=== PATIENT | male | born 1960 | race Caucasian/White ===

== ENCOUNTER 2018-09-28 06:39 | Emergency (ER) | payer BC ==
[~2018-09-28 06:39] MED LIST changes: +LOSA25TA52 PO; -LOSA25TA57 PO; +LOSA50TA74 PO; -LOSA50TA80 PO
[2018-09-28] MEDS ORDERED: LOSA25TA52 PO (07:00)
[2018-09-28] MEDS ORDERED: MORPHINE 2 MG/ML SYR IVP ONE (07:05)
[2018-09-28] MEDS ORDERED: NS(*) 0.9% 500 ML BAG 500 ML IV ONE (07:05)
[2018-09-28] MEDS ORDERED: MORPHINE 4 MG/ML SDV IVP ONE ×2 (07:20→08:55)
[2018-09-28] MEDS ORDERED: ONDANSETRON 4 MG/2 ML VIAL IVP ONE ×2 (07:20→08:55)
[2018-09-28 07:22] LABS: PLATELET COUNT, AUTOMATED 243 K/uL (150-450)
[2018-09-28] MEDS ORDERED: IOPAMIDOL 76% 75 ML INFUS BTL 75 ML ONE (07:30)
--- NOTE | 2018-09-28 08:23 | ER Report ---
History and Physical Time Seen By MD: 07:00 Hx. of Stated Complaint: PATIENT IS EXPERIENCING SHARP ABD. PAIN THAT STARTED YESTERDAY; PATIENT STATES THAT HE HAD DIARREHA LAST WED., ., AND THU. OVER THE WEEKEND THE PATIENT HAD SOME CONSTIPATION; PATIENTS PAIN IS 8/10 HPI/ROS CHIEF COMPLAINT: abdominal pain throughout HISTORY OF PRESENT ILLNESS: Patient developed abdominal pain yesterday. It was initially lower abdomen but is now throughout abdomen. Pain is constant. Nonradiating. Severe. Associated with mild nausea without vomiting. Noted loose stools 3, 2 days ago. Minimal distention. Passing gas. No prior abd surgeries. Has hx cad and s/p stent placement. + anorexia this am REVIEW OF SYSTEMS: Constitutional: No fever, no chills. Eyes: No discharge. ENT: No sore throat. Cardiovascular: No chest pain, no palpitations. Respiratory: No cough, no shortness of breath. Gastrointestinal: above Genitourinary: no dysuria Musculoskeletal: No back pain. Skin: No rashes. Neurological: No headache. Remainder of the 14 system rev: Yes Allergies: Coded Allergies: No Known Drug Allergies (Unverified , 09/28/18) Home Meds Active Scripts Bupropion Hcl (WELLBUTRIN XL) 150 Mg Tab.er.24h, 300 MG PO DAILY, #180 TAB 1 Refill Prov:CECILIA DELAROSA MD 08/06/18 Metoprolol Tartrate (METOPROLOL TARTRATE) 25 Mg Tablet, 0.5 TAB PO QHS, #90 TAB 3 Refills Prov:CECILIA DELAROSA MD 05/14/18 Rosuvastatin Calcium (CRESTOR) 20 Mg Tablet, 20 MG PO QDAY, #90 TAB 3 Refills Prov:CECILIA DELAROSA MD 04/16/18 Clopidogrel Bisulfate (PLAVIX) 75 Mg Tablet, 1 TAB PO QDAY, #90 TAB 3 Refills Prov:CECILIA DELAROSA MD 04/15/18 Tadalafil (CIALIS) 10 Mg Tablet, 1 TAB PO DAILY PRN for sexual activity, #6 TAB 3 Refills Do Not take with nitroglycerin Prov:CECILIA DELAROSA MD 04/15/18 Ranitidine Hcl (ZANTAC) 150 Mg Tablet, 1-2 TAB PO DAILY, #90 TAB 3 Refills Prov:CECILIA DELAROSA MD 04/15/18 Doxycycline Hyclate (DOXYCYCLINE HYCLATE) 50 Mg Capsule, 50 MG PO DAILY, #90 CAPSULE 3 Refills Prov:CECILIA DELAROSA MD 04/15/18 Reported Medications Losartan Potassium (LOSARTAN POTASSIUM) 25 Mg Tablet, 25 MG PO QDAY 09/28/18 Nitroglycerin (NITROGLYCERIN) 0.4 Mg Tab.subl, 0.4 MG SL Q5MIN 05/05/17 Aspirin (ASPIR 81) 81 Mg Tablet.dr, 81 MG PO QDAY, TAB 05/05/17 Discontinued Reported Medications Losartan Potassium (LOSARTAN POTASSIUM) 50 Mg Tablet, 50 MG PO QDAY 05/14/18 Reviewed Nurses Notes: Yes Old Medical Records Reviewed: Yes Smoking Status: Never Smoker Constitutional Vital Sign - Last 24 Hours 09/28/18 09/28/18 09/28/18 09/28/18 06:39 06:43 06:45 06:54 Temp 98.1 Pulse ??? 84 76 Resp 18 18 B/P (MAP) 166/101 166/101 (122) Pulse Ox 94 93 O2 Delivery Room Air 09/28/18 09/28/18 09/28/18 09/28/18 07:00 07:09 07:20 07:24 Pulse 81 74 Resp 29 32 B/P (MAP) 147/103 (118) 130/70 (90) Pulse Ox 97 94 09/28/18 09/28/18 09/28/18 09/28/18 07:40 07:54 08:09 08:20 Pulse ??? 76 Resp 9 B/P (MAP) 125/76 (92) 127/74 (91) Pulse Ox 93 09/28/18 09/28/18 09/28/18 08:24 08:35 10:35 Temp 98.5 Pulse 69 Resp 17 B/P (MAP) 122/75 (91) Pulse Ox 96 Physical Exam General Appearance: The patient is alert, has no immediate need for airway protection and no signs of toxicity. Eyes: Pupils equal and round no pallor or injection. ENT, Mouth: Mucous membranes are moist. Respiratory: There are no retractions, lungs are clear to auscultation. Cardiovascular: Regular rate and rhythm. Gastrointestinal: abdomen is ttp throughout; josué rlq; + rebound/guarding. Mild distension. Nl bs. Neurological: alert, oriented, pérez Skin: Warm and dry, no rashes. Musculoskeletal: Neck is supple non tender. Extremities are nontender, nonswollen and have full range of motion. DIFFERENTIAL DIAGNOSIS: After history and physical exam differential diagnosis was considered for abdominal pain including but not limited to appendicitis, cholecystitis, gastritis and urinary tract infection. Medical Decision Making Data Points Result Diagram: 09/28/18 0655 09/28/18 0655 Laboratory Hematology Test 09/28/18 06:55 09/28/18 08:50 09/28/18 10:27 Red Blood Count 5.47 M/uL (4.00-5.60) Mean Corpuscular Volume 87.6 fL (80.0-96.0) Mean Corpuscular Hemoglobin 30.3 pg (26.0-33.0) Mean Corpuscular Hemoglobin Concent 34.7 g/dL (32.0-36.0) Red Cell Distribution Width 14.0 % (11.5-14.5) Mean Platelet Volume 7.5 fL (7.2-11.1) Neutrophils (%) (Auto) 76.6 % (39.4-72.5) Lymphocytes (%) (Auto) 15.1 % (17.6-49.6) Monocytes (%) (Auto) 6.5 % (4.1-12.4) Eosinophils (%) (Auto) 1.4 % (0.4-6.7) Basophils (%) (Auto) 0.4 % (0.3-1.4) Nucleated RBC Relative Count (auto) 0.0 /100WBC Neutrophils # (Auto) 9.3 K/uL (2.0-7.4) Lymphocytes # (Auto) 1.8 K/uL (1.3-3.6) Monocytes # (Auto) 0.8 K/uL (0.3-1.0) Eosinophils # (Auto) 0.2 K/uL (0.0-0.5) Basophils # (Auto) 0.1 K/uL (0.0-0.1) Nucleated RBC Absolute Count (auto) 0.01 K/uL Peripheral Blood Smear No Y/N Prothrombin Time 12.9 seconds (12.0-14.4) Prothromb Time International Ratio 0.97 Activated Partial Thromboplast Time 36 seconds (23-35) Sodium Level 140 mmol/L (137-145) Potassium Level 4.0 mmol/L (3.5-5.0) Chloride Level 107 mmol/L (98-107) Carbon Dioxide Level 22 mmol/L (22-30) Blood Urea Nitrogen 15 mg/dl (9-21) Creatinine 1.00 mg/dl (0.66-1.25) Glomerular Filtration Rate Calc > 60.0 Random Glucose 117 mg/dl (75-110) Lactate 1.3 mmol/L (0.7-2.1) Calcium Level 8.8 mg/dl (8.4-10.2) Total Bilirubin 0.6 mg/dl (0.2-1.3) Aspartate Amino Transf (AST/SGOT) 34 U/L (0-35) Alanine Aminotransferase (ALT/SGPT) 47 U/L (0-56) Alkaline Phosphatase 72 U/L (0-126) Total Protein 6.7 g/dl (6.3-8.2) Albumin 3.9 g/dl (3.5-5.0) Lipase 76 U/L (23-300) Troponin I < 0.012 ng/ml Urine Color Yellow Urine Clarity Clear Urine pH 8.0 pH (4.8-9.5) Urine Specific [place] 1.044 Urine Protein Negative mg/dL (NEGATIVE) Urine Glucose (UA) Negative mg/dL (NEGATIVE) Urine Ketones Negative mg/dL (NEGATIVE) Urine Blood Negative (NEGATIVE) Urine Nitrite Negative (NEGATIVE) Urine Bilirubin Negative (NEGATIVE) Urine Urobilinogen Negative mg/dL (0.2-1.9) Urine Leukocyte Esterase Negative (NEGATIVE) Urine RBC <1 /HPF (0-2/HPF) Urine WBC <1 /HPF (0-5/HPF) Urine Squamous Epithelial Cells None /LPF (</=FEW) Urine Bacteria Negative /HPF (NONE-FEW) Urine Mucus None /HPF (NONE-FEW) Chemistry Test 09/28/18 06:55 09/28/18 08:50 09/28/18 10:27 White Blood Count 12.2 k/uL (4.5-11.0) Red Blood Count 5.47 M/uL (4.00-5.60) Hemoglobin 16.6 g/dL (14.0-18.0) Hematocrit 47.9 % (42.0-52.0) Mean Corpuscular Volume 87.6 fL (80.0-96.0) Mean Corpuscular Hemoglobin 30.3 pg (26.0-33.0) Mean Corpuscular Hemoglobin Concent 34.7 g/dL (32.0-36.0) Red Cell Distribution Width 14.0 % (11.5-14.5) Platelet Count 243 K/uL (150-450) Mean Platelet Volume 7.5 fL (7.2-11.1) Neutrophils (%) (Auto) 76.6 % (39.4-72.5) Lymphocytes (%) (Auto) 15.1 % (17.6-49.6) Monocytes (%) (Auto) 6.5 % (4.1-12.4) Eosinophils (%) (Auto) 1.4 % (0.4-6.7) Basophils (%) (Auto) 0.4 % (0.3-1.4) Nucleated RBC Relative Count (auto) 0.0 /100WBC Neutrophils # (Auto) 9.3 K/uL (2.0-7.4) Lymphocytes # (Auto) 1.8 K/uL (1.3-3.6) Monocytes # (Auto) 0.8 K/uL (0.3-1.0) Eosinophils # (Auto) 0.2 K/uL (0.0-0.5) Basophils # (Auto) 0.1 K/uL (0.0-0.1) Nucleated RBC Absolute Count (auto) 0.01 K/uL Peripheral Blood Smear No Y/N Prothrombin Time 12.9 seconds (12.0-14.4) Prothromb Time International Ratio 0.97 Activated Partial Thromboplast Time 36 seconds (23-35) Glomerular Filtration Rate Calc > 60.0 Lactate 1.3 mmol/L (0.7-2.1) Calcium Level 8.8 mg/dl (8.4-10.2) Total Bilirubin 0.6 mg/dl (0.2-1.3) Aspartate Amino Transf (AST/SGOT) 34 U/L (0-35) Alanine Aminotransferase (ALT/SGPT) 47 U/L (0-56) Alkaline Phosphatase 72 U/L (0-126) Total Protein 6.7 g/dl (6.3-8.2) Albumin 3.9 g/dl (3.5-5.0) Lipase 76 U/L (23-300) Troponin I < 0.012 ng/ml Urine Color Yellow Urine Clarity Clear Urine pH 8.0 pH (4.8-9.5) Urine Specific [place] 1.044 Urine Protein Negative mg/dL (NEGATIVE) Urine Glucose (UA) Negative mg/dL (NEGATIVE) Urine Ketones Negative mg/dL (NEGATIVE) Urine Blood Negative (NEGATIVE) Urine Nitrite Negative (NEGATIVE) Urine Bilirubin Negative (NEGATIVE) Urine Urobilinogen Negative mg/dL (0.2-1.9) Urine Leukocyte Esterase Negative (NEGATIVE) Urine RBC <1 /HPF (0-2/HPF) Urine WBC <1 /HPF (0-5/HPF) Urine Squamous Epithelial Cells None /LPF (</=FEW) Urine Bacteria Negative /HPF (NONE-FEW) Urine Mucus None /HPF (NONE-FEW) Coagulation Test 09/28/18 06:55 Prothrombin Time 12.9 seconds Prothromb Time International Ratio 0.97 Activated Partial Thromboplast Time 36 seconds Urinalysis Test 09/28/18 10:27 Urine Color Yellow Urine Clarity Clear Urine pH 8.0 pH (4.8-9.5) Urine Specific [place] 1.044 Urine Protein Negative mg/dL (NEGATIVE) Urine Glucose (UA) Negative mg/dL (NEGATIVE) Urine Ketones Negative mg/dL (NEGATIVE) Urine Blood Negative (NEGATIVE) Urine Nitrite Negative (NEGATIVE) Urine Bilirubin Negative (NEGATIVE) Urine Urobilinogen Negative mg/dL (0.2-1.9) Urine Leukocyte Esterase Negative (NEGATIVE) Urine RBC <1 /HPF (0-2/HPF) Urine WBC <1 /HPF (0-5/HPF) Urine Squamous Epithelial Cells None /LPF (</=FEW) Urine Bacteria Negative /HPF (NONE-FEW) Urine Mucus None /HPF (NONE-FEW) ED Course/Re-evaluation ED Course I reviewed ct; appearance c/w likely ruptured appendicitis; Ct report provided at: 0845; acute appendicitis; poss cecal mass that is obstructing/causing appendicitis; will initiate preop; c/w surgeon for evaluation. Pt requires ct f/u in 3-6 mo for indeterminate r kidney injury. Given complicating factors of poss cecal mass, bifasicular block, though wthout e/o acute coronary syndrome at this point, will transfer to [facility]; Dr. Palma coordinates accepting surgeon. Decision to Disposition Date: Sep 28, 2018 Decision to Disposition Time: 08:24 Depart Departure Latest Vital Signs Vital Signs Date Time Temp Pulse Resp B/P (MAP) Pulse Ox O2 Delivery O2 Flow Rate FiO2 09/28/18 10:35 98.5 09/28/18 08:35 122/75 (91) 09/28/18 08:24 69 17 96 09/28/18 06:43 Room Air Impression: Primary Impression: Appendicitis Additional Impressions: Cecum mass Bifascicular block Condition: Condition Unchanged Disposition: XFER TO [facility] Referrals: OREN HUANG MD (PCP) Problem Qualifiers Primary Impression: Appendicitis Appendicitis type: acute appendicitis Acute appendicitis type: unspecified acute appendicitis type Qualified Codes: K35.80 - Unspecified acute appendicitis LEEANN LAM MD Sep 28, 2018 08:23
[2018-09-28 08:38] LABS: INR 0.97
--- NOTE | 2018-09-28 08:49 | EKG ---
FACILITY: PATIENT NAME: ANDREAS DOWNING : [id number] MR: [id number] V: [id number] EXAM DATE: ORDERING PHYSICIAN: LEEANN LAM TECHNOLOGIST: MARK Schulte Reason : ABD PAIN Blood Pressure : / mmHG Vent. Rate : 067 BPM Atrial Rate : 067 BPM P-R Int : 166 ms QRS Dur : 146 ms QT Int : 448 ms P-R-T Axes : 029 -56 -23 degrees QTc Int : 473 ms Normal sinus rhythm Right bundle branch block Left anterior fascicular block Bifascicular block Cannot rule out Inferior infarct (masked by fascicular block?) , age undetermined T wave abnormality, consider lateral ischemia and inferior ischemia Abnormal ECG When compared with ECG of 05-MAY-2017 14:36, (RBBB and left anterior fascicular block) is now present Minimal criteria for Inferior infarct are now present T wave abnormalities present Confirmed by ANGIE BRONSON ([id number]) on 09/28/2018 1:19:40 PM Referred By: GENARO Confirmed By:ANGIE BRONSON
--- NOTE | 2018-09-28 08:50 | EKG ---
FACILITY: [facility] - [place] PATIENT NAME: ANDREAS DOWNING : [id number] MR: [id number] V: [id number] EXAM DATE: ORDERING PHYSICIAN: LEEANN LAM TECHNOLOGIST: MARK Schulte Reason : ABD PAIN Blood Pressure : / mmHG Vent. Rate : 070 BPM Atrial Rate : 070 BPM P-R Int : 168 ms QRS Dur : 146 ms QT Int : 436 ms P-R-T Axes : 034 -55 -15 degrees QTc Int : 470 ms Normal sinus rhythm Right bundle branch block Left anterior fascicular block Bifascicular block T wave abnormality, consider lateral ischemia and inferior ischemia Abnormal ECG Relatively unchanged from previous Confirmed by ANGIE BRONSON ([id number]) on 09/28/2018 1:21:22 PM Referred By: GENARO Confirmed By:ANGIE BRONSON
[2018-09-28] MEDS ORDERED: PIPERACILLIN/TAZO*3.375GM VIAL 3.375 GM in NS(*) 0.9% 100 ML ADDVANT BAG 100 ML IVPB ONE (08:55)
--- NOTE | 2018-09-28 09:29 | RADIOLOGY IMAGING REPORT ---
FACILITY: [facility] - [place] PATIENT NAME: Juan Melchor : 1960 MR: [id number] V: [id number] EXAM DATE: ORDERING PHYSICIAN: LEEANN LAM TECHNOLOGIST: Location: [facility] - [place] Patient: Juan Melchor : 1960 Visit/Account:[id number] Date of Sevice: 09/28/2018 CT abdomen with IV contrast CT pelvis with IV contrast History: Lower abdominal pain, nausea and vomiting for one day. COMPARISON STUDIES: none. TECHNIQUE: Axial CT images were obtained through the abdomen and pelvis during injection of nonioni c iodinated intravenous contrast. Reformatted coronal and sagittal images were also obtained. Contrast: 75 ml of Isovue-370 IV contrast. One of the following dose optimization techniques was utilized in the performance of this exam: Autom ated exposure control; adjustment of the mA and/or kV according to the patient's size; or use of an i terative reconstruction technique. Specific details can be referenced in the facility's radiology C T exam operational policy. FINDINGS: Chest bases: [place] right coronary arteries are severely calcified. Prior sternotomy. Liver: Normal. Gallbladder and bile ducts: Gallbladder is present. Bile ducts are normal caliber. Spleen: size is normal. Pancreas: negative Adrenal glands: negative Kidneys: Right kidney medial inferior pole 11 mm hypodense lesion with indistinct margins is nonspec ific, and has CT density of 20. Pelvic structures: negative Bowel and mesenteries: Appendicolith at the cecal junction measures 13 mm. Proximal appendix, cecal base, and terminal ileum demonstrates wall thickening. The distal appendix is distended with fluid. There is abundant fat haziness in the right lower abdominal quadrant. A mild amount of free fluid tracks from the cecum/appendix to the dependent pelvis. No extraluminal gas is observed. Vessels: negative Musculoskeletal: Negative Body wall: negative Lymph node assessment: Right lower quadrant retroperitoneal lymph node, 12 mm, coronal image 45. Aortocaval lymph node 11 mm greatest transverse diameter, coronal image 49. IMPRESSION: 1. Acute appendicitis associated with wall thickening of the cecal base and terminal ileum, without evidence of perforation. Appendicitis superimposed upon lymphoma or other neoplasm of the cecal base is possible. 2. Right kidney medial inferior pole 11 mm hypodense indeterminate lesion. Recommend CT abdomen fol low-up with and without IV contrast in 4-6 months. Results were discussed with LEEANN LAM at 09/28/2018 9 AM. Report Dictated By: Nel Hewitt MD at 09/28/2018 8:16 AM Report E-Signed By: Nel Hewitt MD at 09/28/2018 9:24 AM WSN:[id number]
--- NOTE | 2018-09-28 10:50 | General Surgery Consultation ---
History of Present Illness Reason for Consult Cecal Mass Chief Complaint Abdominal Pain History of Present Illness Mr. Melchor is a 57yo male who presents with a 2 day history of abdominal pain that has also been associated with some diarrhea. His evaluation in the ED included a CT of his abdomen and pelvis which demonstrated an inflamed appendix and cecum that may include a cecal mass. No free air or fluid. History Problems: (1) S/P CABG x 4 Status: Chronic (2) Benign hypertension Status: Chronic (3) Depression Status: Chronic (4) Hyperlipidemia Status: Chronic (5) GERD (gastroesophageal reflux disease) Status: Chronic (6) CAD (coronary artery disease) of artery bypass graft Status: Chronic (7) H/O heart artery stent Status: Chronic Home Meds Active Scripts Bupropion Hcl (WELLBUTRIN XL) 150 Mg Tab.er.24h, 300 MG PO DAILY, #180 TAB 1 R efill Prov:CECILIA DELAROSA MD 08/06/18 Metoprolol Tartrate (METOPROLOL TARTRATE) 25 Mg Tablet, 0.5 TAB PO QHS, #90 TAB 3 Refills Prov:CECILIA DELAROSA MD 05/14/18 Rosuvastatin Calcium (CRESTOR) 20 Mg Tablet, 20 MG PO QDAY, #90 TAB 3 Refills Prov:CECILIA DELAROSA MD 04/16/18 Clopidogrel Bisulfate (PLAVIX) 75 Mg Tablet, 1 TAB PO QDAY, #90 TAB 3 Refills Prov:CECILIA DELAROSA MD 04/15/18 Tadalafil (CIALIS) 10 Mg Tablet, 1 TAB PO DAILY PRN for sexual activity, #6 TAB 3 Refills Do Not take with nitroglycerin Prov:CECILIA DELAROSA MD 04/15/18 Ranitidine Hcl (ZANTAC) 150 Mg Tablet, 1-2 TAB PO DAILY, #90 TAB 3 Refills Prov:CECILIA DELAROSA MD 04/15/18 Doxycycline Hyclate (DOXYCYCLINE HYCLATE) 50 Mg Capsule, 50 MG PO DAILY, #90 CAPSULE 3 Refills Prov:CECILIA DELAROSA MD 04/15/18 Reported Medications Losartan Potassium (LOSARTAN POTASSIUM) 25 Mg Tablet, 25 MG PO QDAY 09/28/18 Nitroglycerin (NITROGLYCERIN) 0.4 Mg Tab.subl, 0.4 MG SL Q5MIN 05/05/17 Aspirin (ASPIR 81) 81 Mg Tablet.dr, 81 MG PO QDAY, TAB 05/05/17 Discontinued Reported Medications Losartan Potassium (LOSARTAN POTASSIUM) 50 Mg Tablet, 50 MG PO QDAY 05/14/18 Allergies: Coded Allergies: No Known Drug Allergies (Unverified , 09/28/18) Family History: FH: aortic aneurysm FATHER MOTHER Review of Systems All Systems Reviewed/Normal: Yes Cardiovascular: No Chest Pain (denies but states didn't have symptoms during both events last year) Gastrointestinal: Diarrhea, Abdominal Pain Psychiatric: Depression Exam Vital Signs Vital Signs Date Time Temp Pulse Resp B/P (MAP) Pulse Ox O2 Delivery O2 Flow Rate FiO2 09/28/18 06:43 98.1 84 18 166/101 94 Room Air General Appearance: Alert, Awake Neuro: No Gross deficits Eyes: PERRLA ENT: Normal Neck: No Masses Cardiovascular: Regular Rate and Rhythm Respiratory: No Respiratory Distress Chest: No Tenderness GI: Other (Tenderness localizing to RLQ) Musculoskeletal: No Weakness/Pain Extremities: Soft and Non Tender, Warm, Pulses (2+ all 4 extremities) Integumentary: Skin Intact without Lesion / Mass Psych: Alert & Oriented X3, Appropriate Mood & Affect Medical Decision Making Data Points Result Diagram: 09/28/18 0655 09/28/18 0655 INR 0.97 Troponin <0.012 EKG / Imaging EKG Interpretation NSR Rate 70, UT 168 QRS 146 QT/QTc 436/470 RBBB, Left anterior bi-fascicular block Pre-Admit Course Medical Record Review: Yes Assessment and Plan Problems: (1) Mass of cecum Onset Date: ~ 09/28/2018 Status: Acute Assessment & Plan: 09/28/2018: Cecal mass with appendicitis on CT. May re present inflammation or mass in cecum. Will likely require a right hemicolectomy regardless. Patient is a high-risk surgical candidate due to his cardiac history. EKG consistent with postoperative changes though no comparison is immediately available since his stent placement in February 2017. Troponin is normal. I spoke with Dr. Julian Nicole at [facility] who has accepted him in transfer. Time Spent: > 30 min Venous Thromboembolism VTE Risk Physician Assess for VTE Risk: Yes Patient's VTE Risk: Low Antithrombotics Is Pt On Any Antithrombotics?: Yes AMADEO HUMPHREY MD Sep 28, 2018 10:50
[2018-09-28] MEDS ORDERED: LR(*) 1000 ML BAG 1,000 ML ONE (10:57)
[2018-09-28] MEDS ORDERED: LR(*) 1000 ML BAG 1,000 ML IV SCH (11:00)
[2018-09-28 11:20] VITALS: BP 137/78
== END 2018-09-28 11:45 | disposition short-term general hospital (02) ==
LOC: ER 07:10
DX: K35.80 Unspecified acute appendicitis (principal); K63.89 Other specified diseases of intestine; I45.2 Bifascicular block
CPT/HCPCS: 36415; 74177; 81001; 83605; 83690; 84484; 85025; 85610; 85730; 86850; 86900; 86901; 93005; 96361; 96365; 96375; 96376; 99285; J2270; J2405; J2543; J7040; J7050; J7120; Q9967; 82040; 82247; 82310; 82374; 82435; 82565; 82947; 84075; 84132; 84155; 84295; 84450; 84460; 84520

== ENCOUNTER → 2018-09-28 | Outpatient (CLI) | payer BC ==
[~2018-09-28] MED LIST: ASPI-1471 PO; ATOR40TA24 PO; BUPR-472 PO; CLOP75TA43 PO; DOXY40CP4 PO; DOXY50CA27 PO; FLU60SYR30 IM ONLY; FLUO-177 PO; FLUO-201 PO; LISI-362 PO; LOSA25TA57 PO; LOSA50TA80 PO; METO25TA93 PO; NITR0.4T3 SL; RANI-318 PO; RANI-366 PO; ROS10 PO; ROSU20TA23 PO; ROSU5TAB8 PO; TADA10TA14 PO
== END ==
LOC: AMB 11:21
PROVIDERS: ATTEND Nurse Practitioner
DX: K36 Other appendicitis (principal); R10.30 Lower abdominal pain, unspecified
CPT/HCPCS: A0425; A0433

== ENCOUNTER → 2018-10-28 | Outpatient (CLI) | payer BC ==
[~2018-10-28] MED LIST changes: +GABA-547 PO; -LOSA25TA52 PO; +LOSA25TA57 PO; -LOSA50TA74 PO; +LOSA50TA80 PO; +OXYC5TAB38 PO
== END ==
LOC: LAB 09:29
PROVIDERS: ATTEND Surgery
DX: M79.604 Pain in right leg (principal)
CPT/HCPCS: 87324; 87449

== ENCOUNTER → 2019-01-27 | Outpatient (CLI) | payer BC ==
[~2019-01-27] MED LIST changes: -ROS10 PO; +ROSU10TA PO; -ROSU20TA23 PO; +ROSU20TA24 PO; +ROSU40TA18 PO
--- NOTE | 2019-01-28 10:11 | EKG ---
FACILITY: [facility] [place] PATIENT NAME: ANDREAS DOWNING : [id number] MR: [id number] V: [id number] EXAM DATE: ORDERING PHYSICIAN: CECILIA DELAROSA TECHNOLOGIST: WANDA Schulte Reason : SOB Blood Pressure : / mmHG Vent. Rate : 088 BPM Atrial Rate : 088 BPM P-R Int : 176 ms QRS Dur : 156 ms QT Int : 418 ms P-R-T Axes : 071 -65 037 degrees QTc Int : 505 ms Sinus rhythm with occasional premature ventricular complexes Right bundle branch block Left anterior fascicular block Bifascicular block Abnormal ECG When compared with ECG of 28-SEP-2018 08:43, premature ventricular complexes are now present Nonspecific T wave abnormality, improved in Inferior leads T wave inversion no longer evident in Lateral leads Confirmed by CECILIA DELAROSA ([id number]) on 01/28/2019 1:05:47 PM Referred By: Confirmed By:CECILIA DELAROSA
== END ==
LOC: RESP 15:51
PROVIDERS: ATTEND Internal Medicine
DX: R94.31 Abnormal electrocardiogram [ECG] [EKG] (principal)

== ENCOUNTER → 2019-01-28 | Outpatient (CLI) | payer BC ==
[2019-01-28 08:06] LABS: PLATELET COUNT, AUTOMATED 231 K/uL (150-450)
[2019-01-28 08:44] LABS: LDL CHOLESTEROL 71 mg/dl
== END ==
LOC: LAB 07:43
PROVIDERS: ATTEND Internal Medicine
DX: I25.810 Atherosclerosis of coronary artery bypass graft(s) without angina pectoris (principal); I10 Essential (primary) hypertension; E78.5 Hyperlipidemia, unspecified; Z95.1 Presence of aortocoronary bypass graft; R06.00 Dyspnea, unspecified
CPT/HCPCS: 36415; 81001; 82040; 82247; 82310; 82374; 82435; 82465; 82565; 82607; 82947; 83718; 84075; 84132; 84155; 84295; 84443; 84450; 84460; 84478; 84520; 85025

== ENCOUNTER → 2019-01-31 | Outpatient (CLI) | payer BC ==
[~2019-01-31] MED LIST changes: +REGADENOSON 0.4 MG/5 ML SYR ONE
--- NOTE | 2019-01-31 15:42 | RADIOLOGY IMAGING REPORT ---
FACILITY: [facility] - [place] PATIENT NAME: Juan Melchor : 1960 MR: [id number] V: [id number] EXAM DATE: ORDERING PHYSICIAN: CECILIA DELAROSA TECHNOLOGIST: Location: [facility] Patient: Juan Melchor : 1960 Visit/Account:[id number] Date of Sevice: 01/31/2019 EXAMINATION: Single isotope SPECT imaging with regadenoson infusion and gated SPECT imaging. DATE OF EXAMINATION: 01/31/2019. DATE OF INTERPRETATION: 01/31/2019. REQUESTING PHYSICIAN: CECILIA DELAROSA. INDICATION: The patient is a 58-year-old male evaluated for first of breath with history of CAD and prior CABG. PROCEDURE: After informed consent the patient received an intravenous injection of 12.5 mCi of Tc-99 m sestamibi followed at an appropriate time interval by rest imaging. The patient then subsequently received an intravenous infusion of 0.4 mg of regadenoson per protocol without complication. Resting heart rate was 58 bpm with a peak heart rate of 85 bpm. Blood pressure at rest was 151 / 93 and fol lowing infusion was 166 / 85. Baseline EKG demonstrates sinus rhythm with right bundle branch block and left anterior fascicular block. There were no EKG changes of ischemia following infusion. Sympt oms were nonspecific. The patient then received an intravenous injection of 29.3 mCi of Tc-99m sesta mibi followed by stress imaging. RAW DATA: Examination of the summed raw data revealed a adequate quality study. No extracardiac trac er uptake. MYOCARDIAL PERFUSION: The tomographic images demonstrate a moderate intensity, moderate-sized defect in the mid anterior, apical anterior, apical segments at rest and at stress. No significant reversib ility. No transient ischemic dilation.. GATED IMAGES: The gated images demonstrate LVEF 44%. Dyssynchronous anteroseptal wall motion consist ent with prior bypass surgery IMPRESSION: 1. Nondiagnostic pharmacologic stress ECG. 2. Abnormal myocardial perfusion scan with evidence of prior mid LAD infarction without regan-infarct ischemia. 3. Mildly depressed LV systolic function; LVEF 44%. 4. Based on the results of this exam, the patient appears to be at intermediate risk for future cardi ovascular events. 5. No prior nuclear stress test for direct comparison. LVEF 45% by left ventriculography 04/01/2017. Report Dictated By: Doni Macario at 01/31/2019 3:31 PM Report E-Signed By: Doni Macario at 01/31/2019 3:39 PM WSN:[id number]
--- NOTE | 2019-02-01 12:27 | RT STRESS TEST REPORT ---
FACILITY: [facility] - [place] PATIENT NAME: ANDREAS DOWNING : [id number] MR: [id number] V: [id number] EXAM DATE: ORDERING PHYSICIAN: CECILIA DELAROSA TECHNOLOGIST: Alex Acquisition Time: 2019-01-31 09:33:27 Total Exercise Time: 00:01:00 Test Indications: Chest Discomfort Medications: see nuc med sheet Protocol: LEXISCAN Max HR: 085 BPM 52% of Pred: 162 BPM Max BP: 166/085 mmHG Max Work Load: 1.0 METS Baseline EKG RBBB and LAFB Impression NO EKG changes, but non diagnostic because of underlying abnormalities Nuclear medicine report to follow Confirmed by CECILIA DELAROSA ([id number]) on 02/01/2019 12:27:18 PM Referred By: CECILIA DELAROSA Overread By: CECILIA DELAROSA
== END ==
LOC: RESP 00:46
PROVIDERS: ATTEND Internal Medicine
DX: I25.810 Atherosclerosis of coronary artery bypass graft(s) without angina pectoris (principal); R06.00 Dyspnea, unspecified
CPT/HCPCS: 78452; 93017; A9500; J2785

== ENCOUNTER → 2019-02-02 | Outpatient (REF) ==
[~2019-02-02] MED LIST changes: +ALPR-429 PO; +ESCI10TA8 PO; -REGADENOSON 0.4 MG/5 ML SYR ONE
== END ==
LOC: AUD 09:15
PROVIDERS: ATTEND Internal Medicine
DX: Z01.12 Encounter for hearing conservation and treatment (principal)
CPT/HCPCS: 92552

== ENCOUNTER → 2019-03-31 | Outpatient (CLI) | payer BC ==
[~2019-03-31] MED LIST changes: +CAR6.25 PO; +CARV25TA78 PO; +ESCI20TA8 PO; +LOSA100T75 PO; -RANI-366 PO; +RANI-54 PO
== END ==
LOC: RESP 02:20
PROVIDERS: ATTEND Internal Medicine
DX: G47.33 Obstructive sleep apnea (adult) (pediatric) (principal)